=== PATIENT | female | born 1960 | race Caucasian/White ===

== ENCOUNTER 2021-09-08 10:47 | Inpatient (IN) | payer OTHER, SELFPAY ==
--- NOTE | ~2021-09-08 | MR_ITS ---
EXAMINATION: MRI BRAIN WITHOUT CONTRAST CLINICAL INFORMATION: Left upper extremity weakness. Dizziness. COMPARISON: CT scan of the head 09/08/2021. TECHNIQUE: Multiplanar MR imaging of the brain was performed without contrast. FINDINGS: There are a few scattered nonspecific foci of T2 FLAIR signal hyperintensity involving the periventricular white matter, thalami, and basal ganglia. There is a small focus of restricted diffusion involving the right cerebral peduncle best depicted on axial image 16 of 30 series 3. No pathological magnetic susceptibility artifact. Intracranial vascular flow voids are grossly maintained. There is no intracranial mass effect or midline shift. No abnormal extra-axial collection. Lateral and third ventricles are normal. No hydrocephalus. Midline structures including the cervicomedullary junction are normal. No acute bone marrow signal changes. There is no mastoid or middle ear effusion. Mild paranasal sinus disease primarily affecting the ethmoid air cells. Globes and orbits are symmetric. MR/MR head/brain wo con IMPRESSION: There is a small acute lacunar infarct involving the right cerebral peduncle. Scattered chronic small vessel ischemic changes are also visualized within the periventricular white matter, basal ganglia, and thalami.
--- NOTE | ~2021-09-08 | US_ITS ---
EXAMINATION: US EXTRACRANIAL CAROTID DUPLEX, BILATERAL CLINICAL INFORMATION: CVA COMPARISON: None TECHNIQUE: Real-time ultrasound and Doppler techniques (integrating B-mode 2-D vascular images, Doppler spectral analysis and color-flow Doppler imaging) were utilized to interrogate the extracranial carotid arteries, the vertebral arteries and proximal subclavian arteries bilaterally. The degree of stenosis is determined by criteria similar to NASCET. FINDINGS: Right Side: 1. There is no significant atherosclerotic plaque seen in the bifurcation/proximal ICA region. 2. The common carotid artery PSV proximally is 98 cm/s and distally 69 cm/s. 3. The proximal internal carotid artery velocities are 52 cm/s systolic and 15 cm/s diastolic. 4. The proximal external carotid artery PSV is 93 cm/s. 5. The vertebral artery shows antegrade flow. 6. The subclavian artery waveforms are normal. Left Side: 1. There is no significant atherosclerotic plaque seen in the bifurcation/proximal ICA region. 2. The common carotid artery PSV proximally is 128 cm/s and distally 69 cm/s. 3. The proximal internal carotid artery velocities are 68 cm/s systolic and 26 cm/s diastolic. 4. The proximal external carotid artery PSV is 62 cm/s. 5. The vertebral artery shows antegrade flow. 6. The subclavian artery waveforms are normal. US/US carotid duplex BI IMPRESSION: 1. RIGHT: Minimal, non-hemodynamically significant stenosis of the proximal right internal carotid artery corresponding to a 0-49% stenosis by velocity criteria. 2. LEFT: Minimal, non-hemodynamically significant stenosis of the proximal left internal carotid artery corresponding to a 0-49% stenosis by velocity criteria.
--- NOTE | ~2021-09-08 | CT_ITS ---
EXAMINATION: CT HEAD WITHOUT CONTRAST CLINICAL INFORMATION: Dizziness. Left hand weakness. COMPARISON: None TECHNIQUE: Contiguous axial imaging was performed from the skull base to vertex without intravenous administration of contrast. This CT examination was performed using dose optimization techniques as appropriate, variously including the following: *Automated exposure control *Adjustment of mA and/or kV according to patient size (this includes techniques or standardized protocols for targeted exams where dose is matched to indication/reason for exam; i.e. extremities or head) *Use of iterative reconstruction technique DLP: 675 mGy-cm FINDINGS: There is no evidence of acute intracranial hemorrhage or territorial infarction. No abnormal mass effect or midline shift is seen. Caldwell to white matter differentiation is well preserved. No extra-axial fluid collections are identified. The ventricles are normal in size. There is no abnormal attenuation within the brain parenchyma. The osseous structures and soft tissues are normal. The mastoid air cells and visualized portions of the paranasal sinuses are well aerated. CT/CT head/brain wo con IMPRESSION: No acute intracranial hemorrhage or mass effect.
[2021-09-08 10:57] VITALS: BP 164/105; PULSE 84; RESP 16; TEMP 36.1; O2SAT 100; BMI 32.9
--- NOTE | 2021-09-08 11:00 | ECG_ITS ---
Test Reason : DIZZINESS Blood Pressure : / mmHG Vent. Rate : 090 BPM Atrial Rate : 090 BPM P-R Int : 164 ms QRS Dur : 078 ms QT Int : 376 ms P-R-T Axes : 061 009 026 degrees QTc Int : 459 ms Normal sinus rhythm Normal ECG No previous ECGs available Referred By: Generic ED Physician Electronically Signed By:JOHNATHAN YA MD
[2021-09-08 11:14] LABS: MANUAL DIFF FLAG NO
--- NOTE | 2021-09-08 11:22 | ED.NEUROSD ---
HPI - Neuro Symptoms/Deficit General Chief Complaint: Weakness Stated Complaint: Dizzy Tingling L Arm & Hand Time Seen by Provider: 09/08/21 11:21 Source: patient Mode of arrival: ambulatory Limitations: no limitations History of Present Illness HPI Narrative: Wednesday night noted she felt off balance and was leaning to the left, woke up Wednesday morning and L arm feels weak and she is dropping things with L hand non dominant hand Onset (ago): day(s) (2) Timing confirmed by: other (self) Location: left arm and ataxia History of same: No Severity: mild Quality: weak and constant Relieving factors: none Exacerbating factors: none Context: gradual onset On Anticoagulants: No Associated symptoms: other (dizziness) Treatments Prior to Arrival: none Related Data Allergies Allergy/AdvReac Type Severity Reaction Status Date / Time Penicillins Allergy Rash Verified 09/08/21 10:56 Review of Systems Review of Systems: Constitutional : No Fever, No Chills, No Fatigue ENT/Mouth : No sore throat, No Rhinorrhea Eyes: No Eye Pain, No Swelling, No Redness Cardiovascular : No Chest Pain, No SOB, No Dyspnea on Exertion Respiratory : No Cough, No Sputum Gastrointestinal : No Nausea, No Vomiting, No Diarrhea, No abdominal Pain Genitourinary : No Dysuria, No Urinary Frequency, No Hematuria, Musculoskeletal : No joint pain, No Myalgias, No Joint Swelling Skin : No Skin Lesions, No rash Neuro : pos Weakness, No Numbness, pos Dizziness, positive Headache Psych : No Anxiety/Panic, No Depression Heme/Lymph: No Bruising, No Bleeding,No Lymphadenopathy Endocrine : No Polyuria, No Polydipsia All other systems reviewed and are negative [facility] Past Medical History Attestation statement: The following information was validated with the patient. Medical History No pertinent past medical history Social History Social History (Updated 09/08/21 @ 11:39 by Vianca Potts DO) Patient Tobacco Use Status: Never used Tobacco Advance Directives: No Advance Directives Information Provided: No Physical Exam Vital Signs: Vital Signs: Last Vital Signs Temp 96.9 F 09/08/21 10:57 Pulse 84 09/08/21 10:57 Resp 16 09/08/21 10:57 BP 164/105 H 09/08/21 10:57 Pulse Ox 100 09/08/21 10:57 BMI result Body Mass Index 32.9 Appearance: Alert. Oriented X3. No acute distress. Eyes: Pupils equal, round and reactive to light. ENT: Pharynx normal. Neck: Normal inspection. Neck supple. CVS: Normal heart rate and rhythm. Pulses normal. Respiratory: No respiratory distress. Breath sounds normal. Abdomen: Soft and non-tender. Skin: Skin warm and dry. Normal skin color. Normal skin turgor. Extremities: No lower extremity edema. No calf ttp Neuro: Oriented X 3. LUE 4+/5 No sensory deficit. Does lean to left when standing Course Course Course Narrative: CT head negative will obtain MRI at this time to evaluate for possible stroke though she has been to and from bathroom alone multiple times with steady gait which is a good sign signed out to Dr. Bowling pending MRI result of brain MDM - Neuro Symptoms/Deficit MDM Narrative Medical decision making narrative: 61 yo female with no known PMH here with c/o onset of dizziness and then L arm weakness starting Wednesday progressing Wednesday AM at this time will need labs, CT head to r/o stroke/ICH. Dispo per results and findings. Lab Data Result diagrams: 09/08/21 11:05 09/08/21 11:05 Labs: Lab Results 09/08/21 09/08/21 09/08/21 Range/Units 11:05 11:05 11:05 WBC 7.9 (4.8-10.8) X10*3/uL RBC 5.20 (4.20-5.50) X10*6/uL Hgb 16.1 H (12.0-16.0) g/dl Hct 47.4 H (37.0-47.0) % MCV 91.2 (80.0-98.0) fL MCH 31.0 (27.0-33.0) pg MCHC 34.0 (31.0-35.0) g/dl RDW 13.3 (11.0-16.0) % Plt Count 259 (160-400) X10*3/uL MPV 10.4 (9.4-12.3) fL Immature Gran % (Auto) 0.3 (0.0-0.4) % Neut % (Auto) 73.9 H (45-73) % Lymph % (Auto) 17.6 L (20-40) % Mitchell % (Auto) 7.3 (2-11) % Eos % (Auto) 0.4 (0-4) % Baso % (Auto) 0.5 (0-2) % Lymph # (Auto) 1.4 (1.2-4.9) X10*3/uL Mitchell # (Auto) 0.6 (0.1-1.2) X10*3/uL Eos # (Auto) 0.0 (0.0-0.4) X10*3/uL Baso # (Auto) 0.0 (0.0-0.2) X10*3/uL Abs Immat Gran (auto) 0.02 (0.00-0.03) X10*3/uL Absolute Neuts (auto) 5.8 (2.0-8.3) x10*3/uL Absolute Nucleated RBC 0.000 (0.0-0.012) X10*3/uL Nucleated RBC % (auto) 0.0 (0.0-0.2) /100WBC PT 12.4 (9.9-13.0) SEC INR 1.1 (0.9-1.1) Sodium 143 (135-145) mmol/L Potassium 4.6 (3.3-5.1) mmol/L Chloride 108 (96-108) mmol/L Carbon Dioxide 25 (22-29) mmol/L Anion Gap 15 (12-20) BUN 20 H (9-16) mg/dL Creatinine 0.98 (0.5-1.4) mg/dL Estim Creat Clear Calc 58.9 Estimated GFR 58 Random Glucose 99 (60-115) mg/dL Calcium 10.2 (8.4-10.2) mg/dL Magnesium 2.3 (1.6-2.6) mg/dL Troponin I High Sens (<3.5-17.0) ng/L COVID-19 (BERTA) (Negative) COVID-19 Clin Com 09/08/21 09/08/21 Range/Units 11:05 11:11 WBC (4.8-10.8) X10*3/uL RBC (4.20-5.50) X10*6/uL Hgb (12.0-16.0) g/dl Hct (37.0-47.0) % MCV (80.0-98.0) fL MCH (27.0-33.0) pg MCHC (31.0-35.0) g/dl RDW (11.0-16.0) % Plt Count (160-400) X10*3/uL MPV (9.4-12.3) fL Immature Gran % (Auto) (0.0-0.4) % Neut % (Auto) (45-73) % Lymph % (Auto) (20-40) % Mitchell % (Auto) (2-11) % Eos % (Auto) (0-4) % Baso % (Auto) (0-2) % Lymph # (Auto) (1.2-4.9) X10*3/uL Mitchell # (Auto) (0.1-1.2) X10*3/uL Eos # (Auto) (0.0-0.4) X10*3/uL Baso # (Auto) (0.0-0.2) X10*3/uL Abs Immat Gran (auto) (0.00-0.03) X10*3/uL Absolute Neuts (auto) (2.0-8.3) x10*3/uL Absolute Nucleated RBC (0.0-0.012) X10*3/uL Nucleated RBC % (auto) (0.0-0.2) /100WBC PT (9.9-13.0) SEC INR (0.9-1.1) Sodium (135-145) mmol/L Potassium (3.3-5.1) mmol/L Chloride (96-108) mmol/L Carbon Dioxide (22-29) mmol/L Anion Gap (12-20) BUN (9-16) mg/dL Creatinine (0.5-1.4) mg/dL Estim Creat Clear Calc Estimated GFR Random Glucose (60-115) mg/dL Calcium (8.4-10.2) mg/dL Magnesium (1.6-2.6) mg/dL Troponin I High Sens < 3.5 (<3.5-17.0) ng/L COVID-19 (BERTA) Negative (Negative) COVID-19 Clin Com See Note ECG Data Attestation: I personally reviewed and interpreted this ECG as follows: ECG interpretation date: 09/08/21 ECG interpretation time: 11:22 Interpretation: Rate: 90 Rhythm: NSR [place]: left Normal P waves. Normal MARY. Normal QRS complex. ST T wave : normal no FERN qTC: normal prior studies: no acute ischemia The study has been interpreted contemporaneously by me. . NIH Stroke Scale Internal: Initial- Upon Arrival Level of Consciousness: Alert Level of Consciousness Questions: Answers both questions correctly Level of Consciousness Commands: Performs both tasks correctly Best Gaze: Normal Visual: No visual loss Facial Palsy: Normal Motor Arm (Right): No drift Motor Arm (Left): Drift Motor Leg (Right): No drift Motor Leg (Left): No drift Limb Ataxia: Absent Sensory: Normal Best Language: No aphasia Dysarthia: Normal Extinction and Inattention: No abnormality Score: 1 Discharge Plan Discharge Clinical Impression: Dizziness Patient Disposition: Still a Patient
[2021-09-08 11:23] LABS: INTERNATIONAL NORM RATIO 1.1 (0.9-1.1); Prothrombin Time 12.4 SEC (9.9-13.0)
[2021-09-08 11:29] LABS: Anion Gap 15 (12-20); Blood Urea Nitrogen 20 mg/dL (9-16); Calcium 10.2 mg/dL (8.4-10.2); Carbon Dioxide 25 mmol/L (22-29); Chloride 108 mmol/L (96-108); Creatinine Clr Calc Pharmacy 58.9; Estimated Glomerular Filt Rate 58; Glucose Random 99 mg/dL (60-115); Potassium 4.6 mmol/L (3.3-5.1); Sodium 143 mmol/L (135-145)
[2021-09-08 11:30] LABS: COVID-19 Test Negative (Negative); IDNOW Serial# 16C4AD1C
[2021-09-08 11:36] LABS: Basophils Percent Auto 0.5 % (0-2); Eosinophils Percent Auto 0.4 % (0-4); Hematocrit 47.4 % (37.0-47.0); Hemoglobin 16.1 g/dl (12.0-16.0); Imm Gran Abs Auto 0.02 X10*3/uL (0.00-0.03); Imm Gran Pct Auto 0.3 % (0.0-0.4); Lymphocytes Absolute Auto 1.4 X10*3/uL (1.2-4.9); Lymphocytes Percent Auto 17.6 % (20-40); Mean Corpuscular Volume 91.2 fL (80.0-98.0); Mean Platelet Volume 10.4 fL (9.4-12.3); Monocytes Absolute Auto 0.6 X10*3/uL (0.1-1.2); Monocytes Percent Auto 7.3 % (2-11); Neutrophils Absolute Auto 5.8 x10*3/uL (2.0-8.3); Neutrophils Percent Auto 73.9 % (45-73); Platelet Count 259 X10*3/uL (160-400); Red Cell Distribution Width 13.3 % (11.0-16.0); White Blood Count 7.9 X10*3/uL (4.8-10.8)
[2021-09-08 11:46] LABS: Magnesium 2.3 mg/dL (1.6-2.6)
[2021-09-08 12:00] LABS: Troponin-I High Sensitivity < 3.5 ng/L (<3.5-17.0)
[2021-09-08] MEDS: 0.9 % Sodium Chloride 1,000 ML 999 ML IV (12:11)
--- NOTE | 2021-09-08 16:42 | PC.NURSE ---
PT CAME IN FOR WEAKNESS, AOX4 AMB WITH STEADY GAIT. AWAITING MRI RESULT. EQUAL STRENGTH
--- NOTE | 2021-09-08 17:01 | PM.IMHP ---
History of Present Illness Date of Service: 09/08/21 Chief Complaint: left arm clumsyness 61F presented with left upper extremity clumsyness . patient has no significant pmh, she takes asa81, and lipitor 10mg for strong family history of CAD. she reports 2 days ptp she felt odd sensation on left sided. she decided to see if she would feel better the next day, however, continued to feel off , clumsy . finally, was convinced by family to come to ED on day of presentation. MRI showed, a small acute lacunar infarct involving the right cerebral peduncle. patient reports continued odd sensation of proximal LUE, no tpa given due to time of onset and low NIHSS score. Review of Systems Review of Systems: Constitutional: Denies fever, denies Chills Eyes: denies blurry vision ENT: denies sore throat CVS: denies chest pain Respiratory: Denies dyspnea GI: no abdominal pain : denies dysuria MSK: denies neck pain Skin: denies rash Neuro: denies specific motor weakness Psych: denies suicidal ideation Endocrine: denies heat/cold intolerance Hematologic: denies easy bleeding Allergy: denies hives [facility] Medical History Anxiety Family History Father CAD (coronary artery disease) Mother CAD (coronary artery disease) Other Breast cancer Social History Alcohol intake: never Patient Tobacco Use Status: Never used Tobacco Advance Directives: No Advance Directives Information Provided: No Meds Allergies Allergy/AdvReac Type Severity Reaction Status Date / Time Penicillins Allergy Rash Verified 09/08/21 10:56 Active Medications: Current Medications Pharmacy Consult (Consult Rx Perform Med Rec) 1 each MISCELLANE ONCE PRN PRN Reason: Consult order Physical Exam Vital Signs and Narrative: Vital Signs: Last Vital Signs Temp 96.9 F 09/08/21 10:57 Pulse 84 09/08/21 10:57 Resp 16 09/08/21 10:57 BP 164/105 H 09/08/21 10:57 Pulse Ox 100 09/08/21 10:57 BMI result Body Mass Index 32.9 General: no acute distress HEENT: atraumatic Neck: normal to visual inspection CVS: S1, S2, RRR Resp: CTA bilateral Chest: non tender GI: soft, non tender, non distended : no CVA tenderness Skin: no rashes Extremities: no edema Neuro: Oriented X3, grossly intact, no appreciable left sided weakness Psych: cooperative Results Labs CBC and Chem 7: 09/08/21 11:05 09/08/21 11:05 Labs: Laboratory Results - last 24 hr 09/08/21 09/08/21 09/08/21 11:05 11:05 11:05 MCV 91.2 MCH 31.0 MCHC 34.0 RDW 13.3 Plt Count 259 MPV 10.4 Immature Gran % (Auto) 0.3 Neut % (Auto) 73.9 H Lymph % (Auto) 17.6 L Sampson % (Auto) 7.3 Eos % (Auto) 0.4 Baso % (Auto) 0.5 Lymph # (Auto) 1.4 Sampson # (Auto) 0.6 Eos # (Auto) 0.0 Baso # (Auto) 0.0 Abs Immat Gran (auto) 0.02 Absolute Neuts (auto) 5.8 Absolute Nucleated RBC 0.000 Nucleated RBC % (auto) 0.0 PT 12.4 INR 1.1 Anion Gap 15 Estim Creat Clear Calc 58.9 Estimated GFR 58 Random Glucose 99 Calcium 10.2 Magnesium 2.3 Troponin I High Sens COVID-19 (BERTA) COVID-19 Clin Com 09/08/21 09/08/21 11:05 11:11 MCV MCH MCHC RDW Plt Count MPV Immature Gran % (Auto) Neut % (Auto) Lymph % (Auto) Sampson % (Auto) Eos % (Auto) Baso % (Auto) Lymph # (Auto) Sampson # (Auto) Eos # (Auto) Baso # (Auto) Abs Immat Gran (auto) Absolute Neuts (auto) Absolute Nucleated RBC Nucleated RBC % (auto) PT INR Anion Gap Estim Creat Clear Calc Estimated GFR Random Glucose Calcium Magnesium Troponin I High Sens < 3.5 COVID-19 (BERTA) Negative COVID-19 Clin Com See Note Imaging Radiologist's Impressions: Impressions Head CT 09/08/21 12:30 IMPRESSION: No acute intracranial hemorrhage or mass effect. Brain MRI 09/08/21 15:57 IMPRESSION: There is a small acute lacunar infarct involving the right cerebral peduncle. Scattered chronic small vessel ischemic changes are also visualized within the periventricular white matter, basal ganglia, and thalami. Assessment and Plan (1) Acute CVA (cerebrovascular accident): Status: Acute Plan 61F presented with LUE weakness acute right cerebral penducle lacunar infarct asa, plavix, statin check lipids, a1c permissive htn neuro eval tele pt,ot no signs of dysphagia echo will defer choice of vascular imaging to neuro dvt prophylaxis - lovenox full code patient has an ABCD2 score of 6 points, she is high risk for recurrent CVA, therefore, expect to require atleast 2 midnights in hospital Quality Stroke Does the patient have a stroke diagnosis?: Yes Reason for No Anti-thrombotic by Day Two: N/A - Med Ordered VTE Prior VTE?: No VTE Risk Level:: Medical - moderate - high VTE Device Contraindication: Treatment Not Indicated VTE Drug Contraindication: N/A - Med Ordered
[2021-09-08 17:18] VITALS: BP 178/109; PULSE 75; RESP 16; TEMP 36.8; O2SAT 97
--- NOTE | 2021-09-08 17:57 | PHA.MEDREC ---
Pharmacy Consult ? Medication Reconciliation Pharmacy has completed the medication reconciliation.
[2021-09-08] MEDS: Enoxaparin Sodium 40 MG/0.4 ML SYRINGE SUBCUT (18:23)
[2021-09-08] MEDS: Aspirin 81 MG TAB.CHEW 324 MG PO (18:24)
[2021-09-08 20:38] VITALS: BP 163/91; PULSE 72; RESP 20; TEMP 36.8; O2SAT 96
--- NOTE | 2021-09-08 20:39 | PC.NURSE ---
Pt refused ordered Lipitor 80mg PO- states i took it this morning, and i only take 10mg's.
[2021-09-09 00:19] VITALS: BP 124/94; PULSE 71; RESP 16; TEMP 36.8; O2SAT 97
[2021-09-09 04:58] LABS: Hematocrit 46.1 % (37.0-47.0); Hemoglobin 15.7 g/dl (12.0-16.0); Mean Corpuscular HGB Conc 34.1 g/dl (31.0-35.0); Mean Corpuscular Hemoglobin 30.8 pg (27.0-33.0); Mean Corpuscular Volume 90.6 fL (80.0-98.0); Mean Platelet Volume 10.3 fL (9.4-12.3); Platelet Count 252 X10*3/uL (160-400); Red Blood Count 5.09 X10*6/uL (4.20-5.50); Red Cell Distribution Width 13.4 % (11.0-16.0); White Blood Count 8.6 X10*3/uL (4.8-10.8)
[2021-09-09 05:22] LABS: Anion Gap 13 (12-20); Blood Urea Nitrogen 16 mg/dL (9-16); Calcium 9.6 mg/dL (8.4-10.2); Carbon Dioxide 23 mmol/L (22-29); Chloride 111 mmol/L (96-108); Cholesterol 143 mg/dL; Creatinine Clr Calc Pharmacy 67.2; Estimated Glomerular Filt Rate > 60; Glucose Fasting 92 mg/dL (60-99); HDL Cholesterol 40 mg/dL; LDL Cholesterol Calculated 72 mg/dl; Potassium 4.1 mmol/L (3.3-5.1); Sodium 143 mmol/L (135-145); Triglycerides 157 mg/dL
[2021-09-09 07:39] LABS: Estimated Average Glucose 103 mg/dL; Hemoglobin A1c % 5.2 %
[2021-09-09 08:02] VITALS: BP 175/94; PULSE 85; RESP 18; O2SAT 95
[2021-09-09] MEDS: 0.9 % Sodium Chloride Flush 3 ML SYRINGE IVFLUSH ×2 (08:07→16:05)
[2021-09-09] MEDS: Clopidogrel Bisulfate 75 MG TABLET PO (08:07)
[2021-09-09] MEDS: Aspirin Enteric Coated 81 MG TABLET.DR PO (08:07)
[2021-09-09 08:58] VITALS: BP 175/94; PULSE 85; O2SAT 95
--- NOTE | 2021-09-09 11:09 | MHC.STROKE ---
Addendum entered by Yuki Kelly RN 09/10/21 10:38: I MET WITH THE PATIENT TODAY AND REVIEWED HER NIGHT, NO FURTHER STROKE SYMPTOMS, SHE WAS SEEN BY PT AND OT NO SERVICES NEEDED AT THIS TIME. SHE IS AWAITING ECHO RESULTS THEN WILL BE DISCHARGED HOME. I REINFORCED THAT SHE WILL NEED TO FOLLOW UP WITH HER PCP. SHE WILL NEED TO TRACK HER BP READINGS, TAKE ALL HER MEDICATIONS PRESCRIBED. SHE WOULD LIKE TO GO BACK TO THE SCHOOL BY MID-NEXT WEEK IF POSSIBLE. Original Note: ARRIVED WALK-IN 09/08/21 AT 1047. AFTER SPEAKING WITH THE PATIENT SHE DESCRIBED THE SUDDEN ONSET OF SYMPTOMS WEDNESDAY NIGHT 09/06/21 AT 2100. SHE GOT UP FROM THE CHAIR AND WAS DIZZY AND OFF BALANCE, LEANING TO THE LEFT AND HER LEFT HAND WAS CLUMSY. SHE WENT TO BED AND THOUGHT SHE'D BE FINE IN THE MORNING, THE NEXT DAY SHE TRIED TO SHAKE IT OFF BUT HER LEFT HAND REMAINED CLUMSY SO SHE CAME TO THE ED. HER MRI WAS + FOR A RIGHT LACUNAR ISCHEMIC STROKE. I REVIEWED HER DIAGNOSIS, GAVE HER A SCREENSHOT OF HER MRI AND EXPLAINED HOW THAT LOCATION CORRELATED WITH HER SYMPTOMS. SHE IS SCHEDULED FOR AN ECHO AND CAROTID US. NEUROLOGY CONSULT IS PENDING. SHE HAS A + FAMILY HISTORY OF HEART DISEASE, SHE HAS HLD, OBESITY, AND TAKES ASPIRIN 81MG DAILY AND LIPITOR 10MG. I EXPLAINED THAT DR UNGER HAS INCREASED THE DOSE AND WHY, HER LDL IS 72 AND WE DISCUSSED THIS. SHE SAID THAT SHE DOESN'T HAVE HTN BUT I DID ADVISE HER TO PURCHASE A BP CUFF AND I GAVE HER INSTRUCTIONS AND A CHART TO TRACK HER READINGS SO SHE CAN REVIEW THESE WITH HER PCP. 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 SHE SAID SHE HAD MINIMAL STRESS. I DID REVIEW LIFESTYLE MODIFICATIONS SHE CAN MAKE WELL. I WILL CONTINUE TO FOLLOW.
[2021-09-09 12:00] VITALS: BP 168/101; PULSE 83; RESP 20; TEMP 36.8; O2SAT 96
[2021-09-09] MEDS: Acetaminophen 325 MG TABLET 650 MG PO (13:14)
--- NOTE | 2021-09-09 13:52 | PC.NURSE ---
patient a&ox3, neuro intact, pt medicated for headache with relief, library monitor intact nsr 70s, vss, call villagomez within reach will continue to monitor
--- NOTE | 2021-09-09 14:46 | MHC.CM.PN ---
Met with pt to discuss d/c planning: pt resides with spouse, is independent with all care needs: works, drives and has no DME or services. HCP at home naming her dtr Larisa as proxy #1. Pt will contact family for transportation home: [place] x3. D/C Plan: home without services: family to transport.
--- NOTE | 2021-09-09 15:24 | HO.PM.IMPN ---
Subjective Subjective Date of Service: 09/09/21 Interval History: Very mild gait disturbance. L hand improved but not back to normal. She is R-hand dominant. Review of Systems Review of Systems: Yes all other systems are reviewed and are negative Physical Exam Vital Signs: Vital Signs: Last Vital Signs Temp 98.2 F 09/09/21 12:00 Pulse 83 09/09/21 12:00 Resp 20 09/09/21 12:00 BP 168/101 H 09/09/21 12:00 Pulse Ox 96 09/09/21 12:00 BMI result Body Mass Index 32.9 Gen: in no acute distress HEENT: sclera anicteric, moist mucus membranes Neck: supple, no carotid bruits Lungs: clear to auscultation bilaterally Heart: regular rate and rhythm, no murmurs Abd: soft, non-tender, non-distended Ext: no edema Skin: warm/well-perfused Neuro: alert and oriented x3, very mild L hand weakness, no facial droop Psych: appropriate affect Objective Data Active Medications Acetaminophen (Acetaminophen 325 Mg Tablet) 650 mg PO Q6H PRN PRN Reason: Pain, Mild (Pain Scale 1-3) Last Admin: 09/09/21 13:14 Dose: 650 mg Documented by: FELICIA Aspirin (Aspirin Enteric Coated 81 Mg Tablet.) 81 mg PO DAILY [facility] Last Admin: 09/09/21 08:07 Dose: 81 mg Documented by: VERENICE Atorvastatin Calcium (Atorvastatin Calcium 80 Mg Tablet) 80 mg PO BEDTIME [facility] Last Admin: 09/08/21 20:39 Dose: Not Given Documented by: JESSICA Non-Admin Reason: Patient Refused Clopidogrel Bisulfate (Clopidogrel Bisulfate 75 Mg Tablet) 75 mg PO DAILY [facility] Last Admin: 09/09/21 08:07 Dose: 75 mg Documented by: VERENICE Enoxaparin Sodium (Enoxaparin Sodium 40 Mg/0.4 Ml Syringe) 40 mg SUBCUT Q24H [facility] Last Admin: 09/08/21 18:23 Dose: 40 mg Documented by: ALECIA Pharmacy Consult (Consult Rx Perform Med Rec) 1 each MISCELLANE ONCE PRN PRN Reason: Consult order Sodium Chloride (0.9 % Sodium Chloride Flush 3 Ml Syringe) 3 ml IVFLUSH QSHIFT [facility] Last Admin: 09/09/21 08:07 Dose: 3 ml Documented by: VERENICE Labs CBC & Chem 7: 09/09/21 04:44 09/09/21 04:44 Labs: Laboratory Results - last 24 hr 09/09/21 09/09/21 09/09/21 04:44 04:44 04:44 MCV 90.6 MCH 30.8 MCHC 34.1 RDW 13.4 Plt Count 252 MPV 10.3 Absolute Nucleated RBC 0.000 Nucleated RBC % (auto) 0.0 Anion Gap 13 Estim Creat Clear Calc 67.2 Estimated GFR > 60 Fasting Glucose 92 Estimat Average Glucose 103 Hemoglobin A1c % 5.2 Calcium 9.6 Triglycerides 157 Cholesterol 143 LDL Cholesterol, Calc 72 HDL Cholesterol [address] 09/08/21 12:30 IMPRESSION: No acute intracranial hemorrhage or mass effect. Brain MRI 09/08/21 15:57 IMPRESSION: There is a small acute lacunar infarct involving the right cerebral peduncle. Scattered chronic small vessel ischemic changes are also visualized within the periventricular white matter, basal ganglia, and thalami. Assessment and Plan (1) Acute CVA (cerebrovascular accident): Status: Acute Plan hospital d#2 61yo F on ASA + statin for primary prevention, presented with LUE weakness and found to have acute lacunar infarct in R cerebral peduncle, outside of tpA window # acute CVA - DAPT, intensified statin - neuro consult - A1c normal, lipids normal - TTE - carotid US - outpt PT/OT - allow permissive hypertension for now. pt not on antihypertensives at home # VTE ppx - LMWH # dispo - anticipate home with VNA pending above workup completed In my clinical judgment, the patient requires continued hospitalization for the following reasons: patient has an ABCD2 score of 6 points, she is high risk for recurrent CVA, therefore, expect to require atleast 2 midnights in hospital Quality Stroke Does the patient have a stroke diagnosis?: Yes Reason for No Anti-thrombotic by Day Two: N/A - Med Ordered VTE Prior VTE?: No VTE Risk Level:: Medical - moderate - high VTE Device Contraindication: Treatment Not Indicated VTE Drug Contraindication: N/A - Med Ordered
[2021-09-09 16:32] VITALS: BP 165/95; PULSE 81; RESP 16; TEMP 37; O2SAT 95
--- NOTE | 2021-09-09 17:05 | PM.NEUROCN ---
History of Present Illness Data of Consult Service Date: 09/09/21 Primary Care Provider: Darek Francois MD [facility] Reason for consult: stroke with left hand clumsiness This is a 61 -year-old woman who presented with left upper extremity clumsiness And slight slurring of speech thatt started on Wednesday. It was relatively minor so she did not present to the hospital until Wednesday morning. Her symptoms have improved but not completely gone. Her speech is back to normal. There is no previous history of stroke. She is not known to have hypertension, however her blood pressure has been high while she is here. MRI confirmed a lacunar infarct in the right thalamus. She takes asa81, and lipitor 10mg for strong family history of CAD. No tpa given due to time of onset and low NIHSS score. Review of Systems Review of Systems: Constitutional: Denies fever, denies Chills Eyes: denies blurry vision ENT: denies sore throat CVS: denies chest pain Respiratory: Denies dyspnea GI: no abdominal pain : denies dysuria MSK: denies neck pain Skin: denies rash Neuro: denies specific motor weakness Psych: denies suicidal ideation Endocrine: denies heat/cold intolerance Hematologic: denies easy bleeding Allergy: denies hives Yes all other systems are reviewed and are negative [facility] Past Medical History Medical History Anxiety Family History Family History Father CAD (coronary artery disease) Mother CAD (coronary artery disease) Other Breast cancer Social History Social History Alcohol intake: unknown Patient Tobacco Use Status: Tobacco use Unknown Use of substances other than those prescribed or required for medical reasons: No Advance Directives: No Advance Directives Information Provided: No service: No Current occupational status: employed Meds Allergies Allergy/AdvReac Type Severity Reaction Status Date / Time Penicillins Allergy Rash Verified 09/08/21 10:56 Active Medications: Current Medications Acetaminophen (Acetaminophen 325 Mg Tablet) 650 mg PO Q6H PRN PRN Reason: Pain, Mild (Pain Scale 1-3) Last Admin: 09/09/21 13:14 Dose: 650 mg Documented by: Aspirin (Aspirin Enteric Coated 81 Mg Tablet.) 81 mg PO DAILY [facility] Last Admin: 09/09/21 08:07 Dose: 81 mg Documented by: Atorvastatin Calcium (Atorvastatin Calcium 80 Mg Tablet) 80 mg PO BEDTIME [facility] Last Admin: 09/08/21 20:39 Dose: Not Given Documented by: Clopidogrel Bisulfate (Clopidogrel Bisulfate 75 Mg Tablet) 75 mg PO DAILY [facility] Last Admin: 09/09/21 08:07 Dose: 75 mg Documented by: Enoxaparin Sodium (Enoxaparin Sodium 40 Mg/0.4 Ml Syringe) 40 mg SUBCUT Q24H [facility] Last Admin: 09/08/21 18:23 Dose: 40 mg Documented by: Pharmacy Consult (Consult Rx Perform Med Rec) 1 each MISCELLANE ONCE PRN PRN Reason: Consult order Sodium Chloride (0.9 % Sodium Chloride Flush 3 Ml Syringe) 3 ml IVFLUSH QSHIFT [facility] Last Admin: 09/09/21 16:05 Dose: 3 ml Documented by: Home Medications Medication Instructions Recorded Confirmed Last Taken Type aspirin 81 mg tablet,delayed 81 mg PO BEDTIME 09/08/21 09/08/21 09/07/21 History release atorvastatin 10 mg tablet 1 tab PO DAILY 09/08/21 09/08/21 09/08/21 History cholecalciferol (vitamin D3) 25 25 mcg PO DAILY 09/08/21 09/08/21 09/08/21 History mcg (1,000 unit) capsule (Vitamin D3) fluticasone propionate 50 1 spray INTRANASAL BEDTIME 09/08/21 09/08/21 09/07/21 History mcg/actuation nasal spray,suspension loratadine 10 mg tablet (Claritin) 10 mg PO DAILY 09/08/21 09/08/21 09/08/21 History multivitamin 1 tab PO DAILY 09/08/21 09/08/21 09/08/21 History polyethylene glycol 3350 17 gram 17 g PO BEDTIME 09/08/21 09/08/21 09/07/21 History oral powder packet (Miralax) Physical Exam Vital Signs: Vital Signs: Last Vital Signs Temp 98.6 F 09/09/21 16:32 Pulse 81 09/09/21 16:32 Resp 16 09/09/21 16:32 BP 165/95 H 09/09/21 16:32 Pulse Ox 95 09/09/21 16:32 BMI result Body Mass Index 32.9 Neuro: Other: Minimal dysmetria on [id number] test on the left, otherwise completely normal examination. Speech is backk to normal Results Labs CBC & Chem 7: 09/09/21 04:44 09/09/21 04:44 Labs: Short CBC 09/09/21 Range/Units 04:44 WBC 8.6 (4.8-10.8) X10*3/uL Hgb 15.7 (12.0-16.0) g/dl Hct 46.1 (37.0-47.0) % Plt Count 252 (160-400) X10*3/uL BMP 09/09/21 04:44 Sodium 143 Potassium 4.1 Chloride 111 H Carbon Dioxide 23 BUN 16 Creatinine 0.86 Calcium 9.6 Assessment and Plan (1) Acute CVA (cerebrovascular accident): Status: Acute (2) Right subthalamic lacunar stroke: Status: Acute Plan The patient's symptoms are expected to resolve completely. I would recommend close monitoring and control of blood pressure. This represents small vessel disease. May continnue her aspirin and clopidogrel for 6 weeks. Carotid Doppler and echocardiogram to rule out cerebrovascular disease because of family history. Procedures Date of Service Date of Service: 09/09/21
[2021-09-09] MEDS: Enoxaparin Sodium 40 MG/0.4 ML SYRINGE SUBCUT (19:26)
[2021-09-09 20:09] VITALS: BP 158/26; PULSE 82; RESP 18; TEMP 37.3; O2SAT 96
[2021-09-09] MEDS: Atorvastatin Calcium 80 MG TABLET PO (21:38)
--- NOTE | 2021-09-10 00:05 | PC.NURSE ---
Assumed care of pt Pt resting on stretcher with eyes closed, easily arousable Breathing even and unlabored NAD Will continue to monitor
--- NOTE | 2021-09-10 04:04 | PC.NURSE ---
Pt up and ambulated to bathroom Gait even and steady Pt back on bed and on monitors Will continue to monitor
[2021-09-10 05:08] VITALS: BP 141/88; PULSE 67; RESP 18; TEMP 36.6; O2SAT 96
[2021-09-10] MEDS: Acetaminophen 325 MG TABLET 650 MG PO (06:48)
--- NOTE | 2021-09-10 07:00 | CA_ITS ---
Transthoracic Echocardiogram Patient (Last, First, Middle): Janie Ramsay, Gender: Female Date of : 1960 Age: 61 Procedure Date: 09/10/2021 Procedure Type: Transthoracic Echocardiogram Location: ER Height: 157.48 cm Weight: 81.65 kg BSA: 1.83 m2 Heart Rate: 67 bpm BP: 124 / 94 mmHg Candy Separator [place]robing: Referring MD: Jerry Larson MD Symptoms: cva Study Quality: Good ECG Rhythm: Sinus Conclusions: - 1. Normal LV systolic function with grade 1 diastolic dysfunction 2. Normal cardiac valvular Doppler 3. Normal RV systolic pressure 4. No gross pericardial effusion Findings Left Ventricle Normal left ventricular size, thickness, and systolic function. The visually estimated ejection fraction is between 60-65%. Spectral Doppler is indicative of an impaired relaxation filling pattern. E/E prime ratio is <8, consistent with normal filling pressures. Evidence suggests grade I (mild) diastolic dysfunction. Right Ventricle Normal right ventricular cavity size and systolic function. Atria The left atrium is normal in size. There is lipomatous hypertrophy of the interatrial septum. Interatrial shunt cannot be excluded. The right atrium is normal in size. Aortic Valve Normal aortic valve structure and function. There is no aortic valve stenosis. There is no aortic valve regurgitation. Mitral Valve Normal mitral valve structure and function. There is trace mitral valve regurgitation. There is no mitral valve stenosis. Pulmonic Valve The pulmonic valve is likely normal. There is mild pulmonic valve regurgitation. Tricuspid Valve Normal tricuspid valve structure. There is trace tricuspid valve regurgitation. The right ventricular systolic pressure is normal. The right ventricular systolic pressure is 20 mmHg. Normal right atrial pressure. There is no evidence of pulmonary hypertension. Great Vessels All visible segments of the aorta are normal in size. The pulmonary artery was not well visualized. Venous The inferior vena cava is normal in size and collapses greater than 50% with inspiration. Pericardium/Pleural There is no evidence of pericardial effusion. Prior Study Comparison No prior study available for comparison. Recommendations, Care & Conclusions Recommend contrast study to evaluate intracardiac shunting. Measurements 2D Linear Measurements IVSd: 0.98 0.6-0.9/0.6-1.0 cm LVIDd: 3.96 3.9-5.3/4.2-5.9 cm LVIDd Index: 2.16 2.4-3.2/2.2-3.1 cm/m2 LVIDs: 2.19 2.0-3.6 cm LVPWd: 1.04 0.7-1.1 cm Ao Root: 3.30 2.1-3.5 cm LA Diam: 3.80 2.7-3.8/3.0-4.0 cm LAIDs Index: 2.08 1.5-2.3 cm/m2 LV Mass: 238.51 67-162/88-224 g LV Mass Index: 130.33 43-95/49-115 g/m2 LVOT Diam: 2.10 3.0+(-)1.3 cm Mitral Valve MV Pk E: 0.50 MV PK A: 0.90 MV Decel Time: 226.00 E/A: 0.60 E'Lateral: 5.98 E'Medial: 3.81 E/E' Med: 13.10 E/E' Lat: 8.40 PHT: 66.00 MVA PHT: 3.33 Decel [place]: 2.22 Aortic Valve AoV Pk Juan: 1.05 AoV Mn Juan: 0.80 AoV VTI: 0.27 AoV Pk Grad: 4.00 Aov Mn Grad: 3.00 ARY Cont.VTI: 2.55 LVOT LVOT Pk Juan: 0.88 LVOT Mn Juan: 0.58 LVOT VTI: 0.20 LVOT Pk Grad: 3.00 LVOT Mn Grad: 2.00 LVOT Diam: 2.10 LVOT Area: 3.46 Diastolic Function MV Pk E: 0.50 MV Pk A: 0.90 E/A: 0.60 E'Medial: 3.81 E/E' Med: 13.10 E' Laterial: 5.98 E/E' Lat: 8.40 Right Ventricle TAPSE (mm): 19.20 Tricuspid Valve TR Pk Juan: 2.05 TR Pk Grad: 17.00 RA Press: 3.00 RVSP: 20.00 Great Vessels Aorta Ao Root-2D: 3.30 2.0-3.7 cm Sinus of Valsalva: 3.30 2.0-3.5 cm Ao Asc: 3.30 2.1-3.4 cm Pulmonary Valve PV Pk Juan: 0.72 Peak PV Grad: 2.00 Updated in Other Vendor System with Status of Final Cullen Alvarez MD electronically signed on 09/10/2021 3:19:52 PM with status of Final
[2021-09-10 08:00] VITALS: BP 143/79; PULSE 75; RESP 20; TEMP 36.8; O2SAT 94
[2021-09-10] MEDS: Clopidogrel Bisulfate 75 MG TABLET PO (08:45)
[2021-09-10] MEDS: Aspirin Enteric Coated 81 MG TABLET.DR PO (08:45)
[2021-09-10] MEDS: 0.9 % Sodium Chloride Flush 3 ML SYRINGE IVFLUSH (08:45)
--- NOTE | 2021-09-10 10:46 | P.DS_ITS ---
DS: Providers Provider Date of Service: 09/10/21 Date of admission: 09/08/21 16:59 Date of discharge: 09/10/21 Primary care physician: Darek Francois MD Consults: 09/08/21 17:00 Consult to Neurology Routine Consulting Provider: Leon Bassett Reason for consultation: cva DS: Diagnosis Discharge Diagnosis (1) Acute CVA (cerebrovascular accident): Status: Acute (2) Right subthalamic lacunar stroke: Status: Acute DS: Summary Hospital Course Hospital Course: from admission history and physical by hospitalist Jerry Larson MD, 09/08/21: '61F presented with left upper extremity clumsyness . patient has no significant pmh, she takes asa81, and lipitor 10mg for strong family history of CAD. she reports 2 days ptp she felt odd sensation on left sided. she decided to see if she would feel better the next day, however, continued to feel off , clumsy . finally, was convinced by family to come to ED on day of presentation. MRI showed,?a small acute lacunar infact involving the right cerebral peduncle. patient reports continued odd sensation of proximal LUE, no tpa given due to time of onset and low NIHSS score.' This 61yo F on ASA + statin for primary prevention presented with LUE weakness and was found to have acute lacunar infarct in R cerebral peduncle. She presented outside of tPA window. Neurology was consulted. No large-vessel disease identified. Permissive hypertension was allowed. No diabetes and lipid panel normal. She was placed on DAPT x 6 weeks and statin dose was intensified. Symptoms improved during hospitalization. She was referred to outpatient PT/OT if needed. Time Spent with Patient Time attestation: Total time spent providing and/or coordinating discharge services: Discharge coordination time: Greater than 30 minutes Quality: Safe Use of Opioids Does Pt have an Active Cancer Diagnosis on the Problem List?: No Quality: Stroke Does the patient have a stroke diagnosis?: Yes Reason for No Anti-thrombotic at DC: N/A - Med Ordered Reason for No Anticoagulant at DC: Drug treatment not indicated Reason Not Initiating IV-Tpa: Not indicated Reason for No Anti-thrombotic by Day Two: N/A - Med Ordered Reason for No Statin at DC: N/A - Med Ordered Physical Exam Vital Signs: Vital Signs: Last Vital Signs Temp 98.3 F 09/10/21 08:00 Pulse 75 09/10/21 08:00 Resp 20 09/10/21 08:00 BP 143/79 H 09/10/21 08:00 Pulse Ox 94 09/10/21 08:00 BMI result Body Mass Index 32.9 Gen: in no acute distress HEENT: sclera anicteric, moist mucus membranes Neck: supple, no carotid bruits Lungs: clear to auscultation bilaterally Heart: regular rate and rhythm, no murmurs Abd: soft, non-tender, non-distended Ext: no edema Skin: warm/well-perfused Neuro: alert and oriented x3, very mild L hand weakness, no facial droop Psych: appropriate affect DS: Data Data Completed and Pending Completed studies during hospitalization [Text1]: Laboratory Results WBC 8.6 X10*3/uL (4.8-10.8) 09/09/21 04:44 RBC 5.09 X10*6/uL (4.20-5.50) 09/09/21 04:44 Hgb 15.7 g/dl (12.0-16.0) 09/09/21 04:44 Hct 46.1 % (37.0-47.0) 09/09/21 04:44 MCV 90.6 fL (80.0-98.0) 09/09/21 04:44 MCH 30.8 pg (27.0-33.0) 09/09/21 04:44 MCHC 34.1 g/dl (31.0-35.0) 09/09/21 04:44 RDW 13.4 % (11.0-16.0) 09/09/21 04:44 Plt Count 252 X10*3/uL (160-400) 09/09/21 04:44 MPV 10.3 fL (9.4-12.3) 09/09/21 04:44 Immature Gran % (Auto) 0.3 % (0.0-0.4) 09/08/21 11:05 Neut % (Auto) 73.9 % (45-73) H 09/08/21 11:05 Lymph % (Auto) 17.6 % (20-40) L 09/08/21 11:05 [place] % (Auto) 7.3 % (2-11) 09/08/21 11:05 Eos % (Auto) 0.4 % (0-4) 09/08/21 11:05 Baso % (Auto) 0.5 % (0-2) 09/08/21 11:05 Lymph # (Auto) 1.4 X10*3/uL (1.2-4.9) 09/08/21 11:05 [place] # (Auto) 0.6 X10*3/uL (0.1-1.2) 09/08/21 11:05 Eos # (Auto) 0.0 X10*3/uL (0.0-0.4) 09/08/21 11:05 Baso # (Auto) 0.0 X10*3/uL (0.0-0.2) 09/08/21 11:05 Abs Immat Gran (auto) 0.02 X10*3/uL (0.00-0.03) 09/08/21 11:05 Absolute Neuts (auto) 5.8 x10*3/uL (2.0-8.3) 09/08/21 11:05 Absolute Nucleated RBC 0.000 X10*3/uL (0.0-0.012) 09/09/21 04:44 Nucleated RBC % (auto) 0.0 /100WBC (0.0-0.2) 09/09/21 04:44 PT 12.4 SEC (9.9-13.0) 09/08/21 11:05 INR 1.1 (0.9-1.1) 09/08/21 11:05 Sodium 143 mmol/L (135-145) 09/09/21 04:44 Potassium 4.1 mmol/L (3.3-5.1) 09/09/21 04:44 Chloride 111 mmol/L (96-108) H 09/09/21 04:44 Carbon Dioxide 23 mmol/L (22-29) 09/09/21 04:44 Anion Gap 13 (12-20) 09/09/21 04:44 BUN 16 mg/dL (9-16) 09/09/21 04:44 Creatinine 0.86 mg/dL (0.5-1.4) 09/09/21 04:44 Estim Creat Clear Calc 67.2 09/09/21 04:44 Estimated GFR > 60 09/09/21 04:44 Random Glucose 99 mg/dL (60-115) 09/08/21 11:05 Fasting Glucose 92 mg/dL (60-99) 09/09/21 04:44 Estimat Average Glucose 103 mg/dL 09/09/21 04:44 Hemoglobin A1c % 5.2 % 09/09/21 04:44 Calcium 9.6 mg/dL (8.4-10.2) 09/09/21 04:44 Magnesium 2.3 mg/dL (1.6-2.6) 09/08/21 11:05 Troponin I High Sens < 3.5 ng/L (<3.5-17.0) 09/08/21 11:11 Triglycerides 157 mg/dL 09/09/21 04:44 Cholesterol 143 mg/dL 09/09/21 04:44 LDL Cholesterol, Calc 72 mg/dl 09/09/21 04:44 HDL Cholesterol 40 mg/dL 09/09/21 04:44 COVID-19 (BERTA) Negative (Negative) 09/08/21 11:05 COVID-19 Clin Com See Note 09/08/21 11:[address] 09/08/21 12:30 IMPRESSION: No acute intracranial hemorrhage or mass effect. Brain MRI 09/08/21 15:57 IMPRESSION: There is a small acute lacunar infarct involving the right cerebral peduncle. Scattered chronic small vessel ischemic changes are also visualized within the periventricular white matter, basal ganglia, and thalami. Carotid Doppler Study 09/09/21 15:43 IMPRESSION: 1. RIGHT: Minimal, non-hemodynamically significant stenosis of the proximal right internal carotid artery corresponding to a 0-49% stenosis by velocity criteria. 2. LEFT: Minimal, non-hemodynamically significant stenosis of the proximal left internal carotid artery corresponding to a 0-49% stenosis by velocity criteria. TTE 09/10/21 1. Normal LV systolic function with grade 1 diastolic dysfunction; 2. Normal cardiac valvular Doppler; 3. Normal RV systolic pressure; 4. No gross pericardial effusion Discharge Plan Discharge Patient Disposition: Home, Self-Care Discharge Diagnosis: stroke Referrals: Occupational Rehab - [facility] [Outside] - 1 Week Physical Therapy - [facility] [place] [Outside] - 1 Week Darek Francois MD [Primary Care Provider] - 1 Week Discharge Medications: New atorvastatin 80 mg Tablet 80 mg PO BEDTIME Qty: 30 0RF Rx Instructions: replaces prior dose of 10 mg qhs clopidogrel 75 mg Tablet 75 mg PO DAILY Qty: 42 0RF Continued multivitamin Tablet 1 tab PO DAILY 0RF polyethylene glycol 3350 [Miralax] 17 gram Powder In Packet 17 g PO BEDTIME 0RF aspirin 81 mg Tablet,Delayed Release (Dr/Ec) 81 mg PO BEDTIME 0RF fluticasone propionate 50 mcg/actuation [place],Suspension 1 spray INTRANASAL BEDTIME 0RF Rx Instructions: administer into each nostril loratadine [Claritin] 10 mg Tablet 10 mg PO DAILY 0RF cholecalciferol (vitamin D3) [Vitamin D3] 25 mcg (1,000 unit) Capsule 25 mcg PO DAILY 0RF Discontinued atorvastatin 10 mg tablet 1 tab PO DAILY 0RF Discharge Orders: Discharge Order (Routine); Ordered 09/10/21 Ordered By: Adore Quiles Diet: other Activity on Discharge: As tolerated Stand Alone Forms: Patient Portal Discharge page Care Plan Goals: prevention of future strokes Health Concerns: acute ischemic stroke Plan of Treatment: outpatient PT/OT if needed increase atorvastatin from 10 to 80 mg at bedtime continue aspirin 81 mg daily take clopidogrel 75 mg daily for 6 weeks see your primary care doctor in 1 week Assessment: See Discharge Summary Patient Instructions: Ischemic Stroke (DC)
--- NOTE | 2021-09-10 11:07 | MHC.CM.PN ---
pt dcd no skileed servceis ordered by
[2021-09-10 11:37] VITALS: BP 151/87; PULSE 65; RESP 23; TEMP 37.1; O2SAT 94
[2021-09-10 16:23] VITALS: BP 173/85; PULSE 99; RESP 17; TEMP 36.7; O2SAT 95
== END 2021-09-10 17:25 | disposition home or self-care (01) | DRG 45 ==
LOC: HO.ED 16:45 → HO.EDOVER 17:12
PROVIDERS: Emergency Medicine; Admitting Provider Internal Medicine; Emergency Provider Emergency Medicine Emergency Medical Services; PCP Internal Medicine; Visit Provider Family Medicine
DX: I63.81 Other cerebral infarction due to occlusion or stenosis of small artery (principal); G83.24 Monoplegia of upper limb affecting left nondominant side; R27.0 Ataxia, unspecified; R29.701 NIHSS score 1; Z20.822 Contact with and (suspected) exposure to COVID-19; Z88.0 Allergy status to penicillin; Z79.52 Long term (current) use of systemic steroids; Z79.82 Long term (current) use of aspirin; Z79.899 Other long term (current) drug therapy
CPT/HCPCS: 36415; 70450; 70551; 80048; 80061; 83036; 83735; 84484; 85025; 85027; 85610; 87635; 93005; 93306; 93880; 96360; 97162; 97165; 99285; J1650

== ENCOUNTER 2021-10-22 14:00 | Outpatient (RCR) | payer OTHER, SELFPAY | END 2021-11-05 08:31 | disposition home or self-care (01) | LOC: HO.PTCHIC 14:00 | PROVIDERS: PCP Physician Assistant; Visit Provider Physician Assistant | DX: I63.9 Cerebral infarction, unspecified (principal) | CPT/HCPCS: 97110; 97112; 97161 ==